=== PATIENT | male | born 1940 | race Caucasian/White ===

== ENCOUNTER 2018-09-12 12:09 | Outpatient (CLI) | payer MEDICARE ==
[~2018-09-12] VITALS: Ht 170.2 cm; Wt 63.0 kg
[2018-09-12] MEDS ORDERED: ONDA8TAB13 PO (13:58)
[2018-09-12] MEDS ORDERED: FURO40TA4 PO (13:58)
[2018-09-12] MEDS ORDERED: PANT40TA3 PO (13:58)
[2018-09-12] MEDS ORDERED: POTA10TA10 PO (13:58)
[2018-09-12] MEDS ORDERED: OXYC-464 PO (13:58)
[2018-09-12] MEDS ORDERED: SENN-141 PO (13:58)
[2018-09-13] MEDS ORDERED: HYDR-34 PO (14:19)
[2018-09-13] MEDS ORDERED: SULF1TAB35 PO (14:19)
== END 2018-09-12 15:02 | disposition home or self-care (01) ==
LOC: PREOP 12:09
PROVIDERS: ATTEND Surgery
DX: Z01.818 Encounter for other preprocedural examination (principal)

== ENCOUNTER 2018-09-13 11:49 | Day surgery (SDC) | payer MEDICARE ==
[~2018-09-13] VITALS: Ht 170.2 cm; Wt 63.0 kg
[~2018-09-13 11:49] MED LIST: FURO40TA4 PO; ONDA8TAB13 PO; OXYC-464 PO; PANT40TA3 PO; POTA10TA10 PO; SENN-141 PO
[2018-09-13] MEDS ORDERED: CLINDAMYCIN 600 MG/50 ML IVPB 50 ML IV ONE (12:15)
[2018-09-13] MEDS: LACTATED RINGERS 1,000 ML IV PRN ×3 (12:20→16:40)
[2018-09-13 12:25] VITALS: BP 147/75
[2018-09-13 12:29] LABS: BASOPHILS % (AUTO) 0 % (0-10); EOSINOPHILS # (AUTO) 0.2 10^3/uL (0.0-0.3); EOSINOPHILS % (AUTO) 3 % (0-10); HEMATOCRIT 40 % (40-54); HEMOGLOBIN 13.6 G/DL (13.3-17.7); LYMPHOCYTES # (AUTO) 1.1 X 10^3 (1.0-4.0); LYMPHOCYTES % (AUTO) 12 % (12-44); MEAN CORPUSCULAR HEMOGLOBIN 33 PG (25-34); MEAN CORPUSCULAR HGB CONC 34 G/DL (32-36); MEAN CORPUSCULAR VOLUME 98 FL (80-99); MEAN PLATELET VOLUME 9.8 FL (7.4-10.4); MONOCYTES % (AUTO) 22 % (0-12); NEUTROPHILS # (AUTO) 5.6 X 10^3 (1.8-7.8); NEUTROPHILS % (AUTO) 63 % (42-75); PLATELET COUNT 159 10^3/uL (130-400); WHITE BLOOD COUNT 8.9 10^3/uL (4.3-11.0)
[2018-09-13 13:13] LABS: BAND NEUTROPHILS 2 %; BASOPHILS % (MANUAL) 0 %; EOSINOPHILS % (MANUAL) 2 %; LYMPHOCYTES % (MANUAL) 10 %; MONOCYTES % (MANUAL) 18 %; NEUTROPHILS % (MANUAL) 68 %
[2018-09-13 13:14] LABS: ANISOCYTOSIS SLIGHT
[2018-09-13] MEDS ORDERED: BUP/EPI 0.5% 1:200,000 (SENSORCAINE) 30 ML VIAL ONE (13:49)
[2018-09-13] MEDS ORDERED: ROCURONIUM 10 MG/ML 5 ML SYRINGE IV ONE (13:50)
[2018-09-13] MEDS ORDERED: ONDANSETRON 4 MG/2 ML (SDV) Z0FRAN ONE (13:50)
[2018-09-13] MEDS ORDERED: fentaNYL INJECTION 100 MCG/2 ML AMP ONE (13:50)
[2018-09-13] MEDS ORDERED: proPOfol 200 MG/20 ML (DIPRIVAN) VIAL IV ONE (13:50)
[2018-09-13] MEDS ORDERED: DEXAMETHASONE 10 MG/ML (DECADRON) 1 ML VIAL ONE (13:50)
[2018-09-13] MEDS ORDERED: LIDOCAINE PF 2% 5 ML (XYLOCAINE) VIAL ONE (13:50)
[2018-09-13] MEDS ORDERED: SEVOFLURANE (ULTANE) 15 ML INHAL SOLN ONE (14:03)
--- NOTE | 2018-09-13 14:17 | Progress Note-Pre Operative ---
Pre-Operative Progress Note H&P Reviewed The H&P was reviewed, patient examined and no changes noted. Date Seen by Provider: Sep 13, 2018 Time Seen by Provider: 13:00 Date H&P Reviewed: Sep 13, 2018 Time H&P Reviewed: 13:00 Pre-Operative Diagnosis: bilateral reducible inguinal hernias SARAH NARAYANAN MD Sep 13, 2018 14:17
[2018-09-13] MEDS ORDERED: SULF1TAB35 PO (14:19)
[2018-09-13] MEDS ORDERED: HYDR-34 PO (14:19)
--- NOTE | 2018-09-13 14:20 | Discharge Inst-Surgical ---
D/C Lap Instructions-ORACIO New, Converted, or Re-Newed RX: RX on Chart Follow Up Appt in 2 weeks Activity as tolerated No driving for 24 hours No driving while on pain medications Incentive Spirometry use every 2 hours while awake Regular Diet Symptoms to Report: Fever over 101 degree F, Nausea/Vomiting Infection Signs and Symptoms to report: Increased redness, Foul odor of wound, Increased drainage Bathing instructions: May shower Operative Area Clean/Dry; Keep incision clean/dry If any problems/questions: Contact your physician or go to Emergency Room SARAH NARAYANAN MD Sep 13, 2018 14:20
[2018-09-13] MEDS ORDERED: ONDANSETRON 4 MG/2 ML (SDV) Z0FRAN IVP PRN ×2 (14:30→16:15)
[2018-09-13] MEDS ORDERED: ACETAMINOPHEN 325 MG TABLET PO PRN (14:30)
[2018-09-13] MEDS ORDERED: oxyCODONE/APAP 5/325MG (PERCOCET 5) TABLET PO PRN (14:30)
[2018-09-13] MEDS ORDERED: morphine INJ 10 MG/ML 1ML (SYR OR VIAL) IVP PRN (14:30)
[2018-09-13] MEDS ORDERED: NEOSTIGMINE 1 MG/ML 5 ML SYRINGE ONE (15:44)
[2018-09-13] MEDS ORDERED: GLYCOPYRROLATE 0.2 MG/ML (ROBINUL) 2 ML VIAL ONE (15:44)
[2018-09-13] MEDS ORDERED: morphine INJ 10 MG/ML 1ML (SYR OR VIAL) IVP ONE (16:15)
--- NOTE | 2018-09-13 16:18 | Progress Note-Post Operative ---
Post-Operative Progess Note Surgeon (s)/Celery Stripper (s) Surgeon SARAH NARAYANAN MD Celery Stripper: none Pre-Operative Diagnosis bilateral reducible inguinal hernias Post-Operative Diagnosis same Procedure & Operative Findings Date of Procedure 09/13/18 Procedure Performed/Findings laparoscopic bilateral inguinal hernia repair with mesh. Anesthesia Type GET Estimated Blood Loss Estimated blood loss (mL): minimal Specimens/Packing Specimens Removed none SARAH NARAYANAN MD Sep 13, 2018 16:18
--- NOTE | 2018-09-13 16:49 | Anesthesia-General Post-Op ---
General Patient Condition Mental Status/LOC: Same as Preop Cardiovascular: Satisfactory Nausea/Vomiting: Absent Respiratory: Satisfactory Pain: Controlled Complications: Absent Post Op Complications Complications None Follow Up Care/Instructions Patient Instructions None needed. Anesthesia/Patient Condition Patient Condition Patient is doing well, no complaints, stable vital signs, no apparent adverse anesthesia problems. No complications reported per nursing. BOLIVAR CANTRELL CRNA Sep 13, 2018 16:49
[2018-09-13 17:15] VITALS: BP 139/67
[2018-09-13 17:45] VITALS: BP 156/71
[2018-09-13] MEDS ORDERED: HEParin (CENTRAL IV FLUSH) 500 UNIT/5 ML SYR ONE (18:10)
[2018-09-13 18:15] VITALS: BP 146/80
[2018-09-13 18:25] VITALS: BP 146/80
[2018-09-13] MEDS ORDERED: HEParin (CENTRAL IV FLUSH) 500 UNIT/5 ML SYR IV ONE (18:30)
--- NOTE | 2018-09-14 00:58 | OPERATIVE REPORT ---
DATE OF SERVICE: 09/13/2018 ATTENDING PRIMARY CARE PHYSICIAN: Dr. Eugenio Bowen. PREOPERATIVE DIAGNOSIS: Bilateral symptomatic inguinal hernias with the right larger than the left. He did have a left inguinal hernia repaired by open technique in 1989; however, there has been reoccurrence. He reports that the hernia on the right side became incarcerated and very painful and this did require anesthesia and manual reduction. Otherwise, he is doing well and tolerating a regular diet and having normal bowel movements. 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 For the most part, he feels that the cancer has not grown and at this time, he is progressing with all of his normal activities of daily living. He states that these hernias are painful and would like to have them repaired. DESCRIPTION OF PROCEDURE: The patient was brought to the operating room in supine and laid supine on the table. After adequate IV pain and sedating medications and general endotracheal intubation, the abdomen was prepped and draped in standard surgical fashion. A 0.5% Marcaine with epinephrine was used to anesthetize the overlying skin in the infraumbilical rim and a transverse skin incision made using a 15 blade. A 0 silk suture was applied to the medial aspect of the incision for retraction and a Veress needle inserted with a low opening pressure of 0 mmHg. The abdomen was insufflated to 15 mmHg pressure. The Veress needle removed and a 5 mm Xcel trocar placed followed by a 10 mm Xcel trocar placed followed by a 10 mm 45-degree angle laparoscope visualizing the peritoneal cavity. A 4-quadrant abdominal exploration was performed. There appeared to be some cirrhotic changes of the liver. The gallbladder was apparent, but appeared normal and no signs of inflammation. What was visualized of the peritoneal cavity including omentum, small bowel, colon and stomach appeared normal with no carcinomatosis. A right inguinal hernia was identified, which was large in size. There was a recurrent left inguinal hernia, which was small. There was nothing within both of the hernia sacs. Under direct visualization, we then proceed to place bilateral 5 mm ports after the skin and peritoneal lining were anesthetized using 0.5% Marcaine with epinephrine and a skin incision made using a 15 blade. The patient was then placed in Trendelenburg position. We first proceeded with repair of the right inguinal hernia. A wedge of the peritoneal lining was opened starting laterally towards the conjoint tendon and inguinal ligament using the Sonicision and then proceeded medially towards Nathan's ligament. We then proceeded to dissect out the entirety of the hernia sac. The cord and its surrounding structures identified and spared throughout the process. A medium size 3DMax polypropylene mesh was then placed into the defect and tacked to Nathan's ligament medially with absorbable tacks and the conjoined tendon laterally. The omentum was then placed over the entire layer of the mesh and a few tacks placed to keep this in place with visualization of good hemostasis. We then turned our attention to repair of the recurrent left inguinal hernia. In a similar manner, a wedge of peritoneal lining was opened using Sonicision and proceeded laterally towards the conjoint tendon and inguinal ligament. We then proceeded medially towards Nathan's ligament. We then proceeded with inferior dissection encompassing the entire hernia sac. No previous hernia was identified. A 3DMax polypropylene mesh was then placed in the defect and tacked to Nathan's ligament medially and the conjoint tendon laterally. The peritoneal lining was then placed completely over the mesh and a few tacks placed to hold this in place with visualization of good hemostasis. The 10 mm port site fascia and peritoneum were then closed under direct visualization using Zachariah-Brian device and 0 Vicryl suture. The abdomen was desufflated and remaining ports removed. All skin incisions were closed using 4-0 Monocryl running subcuticular sutures. Wounds were then cleaned and covered with Dermabond. The patient tolerated the procedure well. We will start IV normal pain medication as well as a clear liquid diet. Once he is tolerating clears, has good pain control with oral pain medications, ambulating well, we will discharge him home. He will be instructed to do no heavy lifting or exertion for the next two weeks as well as to wear his supportive garments that he will go home with at all times for the next two weeks as well. Job ID: [id number] DocumentID: [id number] Dictated Date: 09/13/2018 16:31:25 Quantitative Strategy Analyst Date: 09/14/2018 00:56:53 Dictated By: SARAH NARAYANAN MD
== END 2018-09-13 18:25 | disposition home or self-care (01) ==
LOC: SDC 11:49
PROVIDERS: ATTEND Surgery
DX: K40.21 Bilateral inguinal hernia, without obstruction or gangrene, recurrent (principal); I10 Essential (primary) hypertension; K21.9 Gastro-esophageal reflux disease without esophagitis; C24.0 Malignant neoplasm of extrahepatic bile duct; K59.00 Constipation, unspecified; F17.210 Nicotine dependence, cigarettes, uncomplicated; Z79.899 Other long term (current) drug therapy
CPT/HCPCS: 36415; 85007; 85027; 87081